=== PATIENT | female | born 1965 | race Caucasian/White ===

== ENCOUNTER 2016-10-19 18:41 | Emergency (ER) | payer OTHER ==
[~2016-10-19] VITALS: Ht 160 cm; Wt 131.1 kg
--- NOTE | 2016-10-19 19:10 | ED GENERAL ADULT ---
History of Present Illness General Chief Complaint: Dizziness Stated Complaint: DIZZINESS SINCE AM Source: patient Exam Limitations: no limitations Vital Signs & Intake/Output Vital Signs & Intake/Output Vital Signs Date Time Temp Pulse Resp B/P Pulse O2 O2 Flow FiO2 Ox Delivery Rate 10/19 2259 162/90 10/19 2234 86 18 189/96 96 Room Air 10/19 2108 97.6 86 18 158/102 10/19 1958 86 158/102 10/198 158/102 10/19 1847 97.6 86 18 192/113 97 Room Air ED Intake and Output 10/20 0000 10/19 1200 Intake Total Output Total Balance Patient 289 lb Weight Allergies Coded Allergies: NO KNOWN ALLERGIES (10/19/16) Reconcile Medications Amlodipine Besylate (Norvasc) 5 MG TABLET 1 TAB PO DAILY hypertension Meclizine HCl 25 MG TABLET 1 TAB PO Q8 PRN dizziness Triage Note: REPORTS DIZZINES AND NAUSEA THAT STARTED THIS AM. HAS NOT TAKEN ANYTHING FOR IT. DENIED CHEST PAIN. Triage Nurses Notes Reviewed? yes HPI: Patient is a 51 year old female presents complaining of dizziness, intermittent in feeling of her vision being unfocused, feeling of mild disorientation and mild gait ataxia. Symptoms onset at 6:30 this morning when patient awoke from sleep. Patient reports that her head "feels whooshing" when she moves her head around. Symptoms are currently moderate. Pain is 0/10. Patient is not currently on any medications, reports that her primary doctor has been monitoring her blood pressure but she has not been formally diagnosed with hypertension. Patient denies headache, chest pain, dyspnea, palpitations, extremity numbness, extremity weakness, syncope. (NATAN REZA) Past History Travel History Traveled to [place] past 21 day No Medical History Any Pertinent Medical History? none Surgical History Surgical History: non-contributory Psychosocial History What is your primary language [place]al[place] Tobacco Use: Never used Illicit Drug Use: denies illicit drug use Family History Hx Contributory? No (NATAN REZA) Review of Systems Review of Systems Constitutional: Denies: chills, fever. EENTM: Reports: visual changes. Respiratory: Reports: no symptoms. Cardiovascular: Denies: chest pain, palpitations, syncope. GI: Denies: abdominal pain, nausea (+ increased belching today). Musculoskeletal: Reports: no symptoms. Skin: Reports: no symptoms. Neurological/Psychological: Reports: see HPI. Denies: headache, numbness. Hematologic/Endocrine: Reports: no symptoms. Immunologic/Allergic: Reports: no symptoms. (NATAN REZA) Physical Exam Physical Exam General Appearance: well developed/nourished, alert, awake, obese Head: atraumatic, normal appearance Eyes: Bilateral: normal appearance, PERRL, EOMI. Ears, Nose, Throat: normal pharynx, normal ENT inspection, hearing grossly normal Neck: normal inspection, supple, full range of motion Respiratory: normal breath sounds, chest non-tender, no respiratory distress, lungs clear Cardiovascular: regular rate/rhythm (NO APPRECIABLE MURMUR) Peripheral Pulses: 2+ radial (R), 2+ radial (L), 2+ dorsalis pedis (R), 2+ dorsalis pedis (L) Gastrointestinal: soft, non-tender Back: normal inspection, normal range of motion Extremities: normal inspection, normal capillary refill, normal range of motion, no edema Neurologic/Psych: no motor/sensory deficits, awake, alert, oriented x 3, normal mood/affect, manager mountain II-XII nml as tested, MILD GAIT ATAXIA Skin: intact, normal color, warm/dry Lymphatic: no anterior cervical epifanio Core Measures ACS in differential dx? Yes ASA ordered for poss ACS? No-ACS ruled out CVA/TIA Diagnosis: No Severe Sepsis Present: No Septic Shock Present: No (NATAN REZA) Progress Differential Diagnoses I considered the following diagnoses in my evaluation of the patient: Vertigo central versus peripheral, intracranial bleed, intracranial mass, hypertension, hypertensive urgency, endorgan dysfunction Plan of Care: Orders Procedure Date/time Status Telemetry/[place] 10/19 1917 Active URINALYSIS 10/19 1917 Complete TROPONIN LEVEL 10/19 1917 Complete COMPREHENSIVE METABOLIC PANEL 10/19 1917 Complete CBC WITHOUT DIFFERENTIAL 10/19 1917 Complete EKG 10/19 1909 Active Current Medications Sig/Genny Start time Last Medication Dose Stop Time Status Admin Labetalol HCl 10 MG ONCE ONE 10/19 1929 CAN (Trandate) 10/19 1930 Laboratory Tests 10/19/16 2007: Urine Color YEL, Urine Clarity CLEAR, Urine pH 7.0, Ur Specific [place] 1.020, Urine Protein NEG, Urine Ketones NEG, Urine Nitrite NEG, Urine Bilirubin NEG, Urine Urobilinogen 0.2, Ur Leukocyte Esterase NEG, Ur Microscopic SEDIMENT EXAMINED, Urine RBC RARE, Urine WBC 1-3 H, Ur Epithelial Cells MANY H, Urine Hemoglobin SMALL H, Urine Glucose NEG 10/19/161932: Anion Gap 10, Estimated GFR 59 L, BUN/Creatinine Ratio 16.0, Glucose 138 H, Calcium 9.4, Total Bilirubin 0.4, AST 18, ALT 34, Alkaline Phosphatase 109, Troponin I < 0.01, Total Protein 7.0, Albumin 4.1, Globulin 2.9, Albumin/ Globulin Ratio 1.4, CBC w Diff NO MAN DIFF REQ, RBC 4.61, MCV 77.9 L, MCH 25.9 L, RDW 15.0 H, MPV 8.3, Gran % 66.1, Lymphocytes % 25.1, Monocytes % 6.2, Eosinophils % 1.7, Basophils % 0.9, Absolute Granulocytes 6.1, Absolute Lymphocytes 2.3, Absolute Monocytes 0.6, Absolute Eosinophils 0.2, Absolute Basophils 0.1, PUBS MCHC 33.2 10/19/2016 9:44:53 PM: Results discussed with patient. Patient reports that she continues with mild dizziness. Patient's manual blood pressure significantly better than the automated blood pressure. 10/19/2016 10:30:57 PM: Patient reports dizziness improving. No acute neurologic abnormalities. Patient ambulated well from room 5 to the bathroom without ataxia. Patient appears stable for discharge with close outpatient follow-up. Discussed results of labs and imaging with patient, need for follow up and the possible need for further neuro imaging. (RUPALI ZIMMERMAN,NATAN) Diagnostic Imaging: Viewed by Me: CT Scan. Discussed w/RAD: CT Scan. Radiology Impression: PATIENT: HARPREET COATES PRESENT AGE: 51 PATIENT ACCOUNT NO: [id number] : 67 LOCATION: [facility] ORDERING PHYSICIAN: NATAN ZIMMERMAN SERVICE DATE: 10/19/16 EXAM TYPE: CAT - CT HEAD WO IV CONTRAST EXAMINATION: CT HEAD WITHOUT CONTRAST CLINICAL INFORMATION: Blurred vision and disorientation. Hypertensive urgency. Assess for stroke. COMPARISON: None. TECHNIQUE: Contiguous axial imaging was performed from the skull base to vertex without intravenous administration of contrast. DLP: 600.71 mGy-cm. FINDINGS: There is no evidence of acute intracranial hemorrhage or territorial infarction. No abnormal mass effect or midline shift is seen. Frausto to white matter differentiation is well preserved. No extra-axial fluid collections are identified. The ventricles are normal in size. There are curvilinear areas of calcification in the bilateral centra semiovale. There are no acute osseous findings. The soft tissues are unremarkable. There is moderate hyperostosis frontalis interna. The mastoid air cells and visualized portions of the paranasal sinuses are well aerated. IMPRESSION: 1. There are no acute bleeds or territorial infarcts. 2. The curvilinear calcifications in the centra semiovale bilaterally are nonspecific. They may be sequelae of prior infection, prior infarct/trauma, vascular malformations or may be metabolic. Correlate clinically, and consider follow-up MRI scan without and with contrast for further assessment. DICTATED BY: MELISSA ARELLANO MD DATE/TIME DICTATED:10/19/161953 BAG MACHINE SET UP OPERATOR:TUNDE DATE/TIME TRANSCRIBED:10/19/161953 CONFIDENTIAL, DO NOT COPY WITHOUT APPROPRIATE AUTHORIZATION. <Electronically signed in Other Vendor System> SIGNED BY: MELISSA ARELLANO MD 10/19/162001 Initial ED EKG: normal axis, normal intervals, normal p-waves, normal QRS complex, normal sinus rhythm, no ST T wave changes (NATAN REZA) Departure Departure Time of Disposition: 2305 Disposition: HOME OR SELF CARE Condition: Stable Clinical Impression Primary Impression: Vertigo Secondary Impressions: Hypertension Referrals: MARILEE CHERRY MD (PCP/Family) Additional Instructions: Follow-up with your primary doctor within 1 week for further evaluation of your blood pressure, dizziness, and the results of the blood work and CT scan. Call in the morning for appointment. Return to the emergency department numbness, weakness, severe headache, dizziness is uncontrollable, difficulty in regulating , or worsening of symptoms. Departure Forms: Customer Survey General Discharge Information Prescriptions: Current Visit Scripts Meclizine HCl 1 TAB PO Q8 PRN dizziness #12 TAB Amlodipine Besylate (Norvasc) 1 TAB PO DAILY #30 TAB (NATAN REZA) PA/SNACK BAR ATTENDANT Co-Sign Statement Statement: ED Attending supervision documentation- [] I saw and evaluated the patient. I have also reviewed all the pertinent lab results and diagnostic results. I agree with the findings and the plan of care as documented in the PA's/SNACK BAR ATTENDANT's documentation. [x] I have reviewed the ED Record and agree with the PA's/SNACK BAR ATTENDANT's documentation. [] Additions or exceptions (if any) to the PAs/SNACK BAR ATTENDANT's note and plan are summarized below: [] (JULIANO SAL,LIZ) Critical Care Note Critical Care Note Critical Care Time: 30-74 min (RUPALI ZIMMERMAN,NATAN)
[2016-10-19 19:50] LABS: ABSOLUTE BASOPHIL COUNT 0.1 /CUMM (0.0-0.2); ABSOLUTE EOSINOPHIL COUNT 0.2 /CUMM (0.0-0.7); ABSOLUTE GRANULOCYTE CT 6.1 /CUMM (1.4-6.5); ABSOLUTE LYMPH COUNT 2.3 /CUMM (1.2-3.4); ABSOLUTE MONOCYTE COUNT 0.6 /CUMM (0.10-0.60); BASOPHIL % 0.9 % (0.0-2.0); EOSINOPHIL % 1.7 % (0-5); GRANULOCYTE % 66.1 % (42.2-75.2); HEMATOCRIT 35.9 % (37-47); MEAN CORPUSCULAR HGB 25.9 PG (27.0-31.0); MEAN CORPUSCULAR HGB CONC 33.2 G/DL (33.0-37.0); MEAN CORPUSCULAR VOLUME 77.9 FL (81.0-99.0); MEAN PLATELET VOLUME 8.3 FL (7.4-10.4); PLATELET COUNT 242 /CUMM (130-400); RED BLOOD CELL CT 4.61 /CUMM (4.20-5.40); WHITE BLOOD CELL COUNT 9.3 /CUMM (4.8-10.8)
--- NOTE | 2016-10-19 20:02 | CT SCAN REPORT ---
EXAMINATION: CT HEAD WITHOUT CONTRAST CLINICAL INFORMATION: Blurred vision and disorientation. Hypertensive urgency. Assess for stroke. COMPARISON: None. TECHNIQUE: Contiguous axial imaging was performed from the skull base to vertex without intravenous administration of contrast. DLP: 600.71 mGy-cm. FINDINGS: There is no evidence of acute intracranial hemorrhage or territorial infarction. No abnormal mass effect or midline shift is seen. Frausto to white matter differentiation is well preserved. No extra-axial fluid collections are identified. The ventricles are normal in size. There are curvilinear areas of calcification in the bilateral centra semiovale. There are no acute osseous findings. The soft tissues are unremarkable. There is moderate hyperostosis frontalis interna. The mastoid air cells and visualized portions of the paranasal sinuses are well aerated. IMPRESSION: 1. There are no acute bleeds or territorial infarcts. 2. The curvilinear calcifications in the centra semiovale bilaterally are nonspecific. They may be sequelae of prior infection, prior infarct/trauma, vascular malformations or may be metabolic. Correlate clinically, and consider follow-up MRI scan without and with contrast for further assessment.
[2016-10-19 22:59] VITALS: BP 162/90
[2016-10-19] MEDS ORDERED: MECLIZINE HCL25 MG PO (23:07)
[2016-10-19] MEDS ORDERED: NORVASC5 M1 PO (23:07)
== END 2016-10-19 23:15 ==
LOC: ERH 18:41
PROVIDERS: Physician Assistant
DX: I10 Essential (primary) hypertension (principal); R42 Dizziness and giddiness
CPT/HCPCS: 81001; 93005; 93010